=== PATIENT | female | born 1975 ===

== ENCOUNTER → 2018-01-16 | Outpatient (CLI) | payer OTHER ==
--- NOTE | 2018-01-16 13:47 | Diagnostic Imaging Report ---
INDICATION: Routine screening. No prior mammograms are available for comparison. This is a baseline study. 2-D and 3-D bilateral screening mammography was performed with CAD. The current study was also evaluated with a Computer Aided Detection (CAD) system. FINDINGS: Scattered fibronodular densities are identified bilaterally. No mass or malignant-appearing microcalcifications are seen. The axillae are unremarkable. IMPRESSION: No mammographic features suspicious for malignancy are identified. ACR BI-RADS Category 1: Negative. Result letter will be mailed to the patient. Note: At least 10% of breast cancer is not imaged by mammography. Dictated by: Dictated on workstation # [id number]
== END ==
LOC: RAD 10:39
PROVIDERS: ATTEND Nurse Practitioner Family
DX: Z12.31 Encounter for screening mammogram for malignant neoplasm of breast (principal)
CPT/HCPCS: 77067

== ENCOUNTER → 2020-05-10 | Outpatient (REF) ==
--- NOTE | 2020-05-10 14:30 | Diagnostic Imaging Report ---
INDICATION: Lifting injury, pain. FINDINGS: Two views of the right humerus show no fracture, dislocation, or opaque foreign body. No abnormal periosteal reaction. IMPRESSION: Unremarkable 2 view right humerus series. Dictated by: Dictated on workstation # [id number]
== END ==
LOC: OCC 11:33 → MERGE 11:33
PROVIDERS: ATTEND Nurse Practitioner Family
DX: S49.91XA Unspecified injury of right shoulder and upper arm, initial encounter (principal); X58.XXXA Exposure to other specified factors, initial encounter
CPT/HCPCS: 73060

== ENCOUNTER 2020-12-21 16:25 | Emergency (ER) | payer OTHER ==
[~2020-12-21] VITALS: Ht 155 cm; Wt 81.6 kg
--- NOTE | 2020-12-21 16:54 | ED GU-Female ---
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 Patient states that she was seen at [facility] and told she was anemic started on iron pills but she states she ran out about a week ago. Patient states that she is a little lightheaded and dizzy with position change. She complains of mild abdominal cramping but none currently. She is a G 4 P2. She states her last Pap smear and female exam was approximately 3 years ago. She has an appointment with Dr. Ashraf scheduled for January. She denies any associated symptoms of vaginal itching, dysuria, urgency, frequency. She has not had any diarrheal illnesses. No fevers or chills. No other complaints of illness or injury. She states the blood today is watery and a little bit less than what she has been having. She has been taking no other medications for the bleeding other than the iron tablets. Language line was used for interpretation as was her grown son who is at the bedside. All other review of systems reviewed and negative except as stated above. Timing/Duration: constant Severity/Quality: cramping Activities at Onset: none Prior Genitourinary Problems: none Associated Symptoms: abdominal pain (Mild abdominal cramping occasionally) Allergies and Home Medications Allergies Coded Allergies: No Known Drug Allergies (Unverified , 12/21/20) Patient Home Medication List Home Medication List Reviewed: Yes Review of Systems Review of Systems Constitutional: see HPI, malaise, weakness, other (Dizziness) Respiratory: no symptoms reported Cardiovascular: no symptoms reported Gastrointestinal: abdominal pain Genitourinary: other (Vaginal bleeding) : No Musculoskeletal: no symptoms reported Skin: no symptoms reported Hematologic/Lymphatic: Anemia All Other Systemes Reviewed Negative Unless Noted: Yes Past Vnhlyyl-Vbbaom-Ifdekd Hx Patient Social History Alcohol Use: Denies Use 2nd Hand Smoke Exposure: No Recent Hopitalizations: No Past Medical History Surgeries: Yes (c sections) Abdominal Respiratory: No Cardiac: No Neurological: No Genitourinary: No Gastrointestinal: No Musculoskeletal: No Endocrine: No HEENT: No Cancer: No Psychosocial: No Integumentary: No Blood Disorders: No Physical Exam Vital Signs Vital Signs - First Documented 12/21/20 16:30 Temp 36.1 Pulse 104 Resp 18 B/P (MAP) 132/82 (99) Pulse Ox 98 O2 Delivery Room Air Capillary Refill : Height, Weight, BMI Height: '" Weight: lbs. oz. kg; BMI Method: General Appearance: WD/WN, no apparent distress HEENT: pale conjunctivae (R), pale conjunctivae (L) Neck: full range of motion Cardiovascular: regular rate, rhythm Respiratory: lungs clear, normal breath sounds, no respiratory distress Gastrointestinal: non tender, soft Pelvic: normal external exam, no cerv. motion tender, no masses, vaginal bleeding, other (os closed; moderate amount of blood and clot in vaginal vault; some clot removed from cervix) Neurologic/Psychiatric: alert, normal mood/affect, oriented x 3 Skin: normal color, warm/dry Progress/Results/Core Measures Suspected Sepsis SIRS Temperature: Pulse: Respiratory Rate: Laboratory Tests 12/21/20 16:35: White Blood Count 6.6 Blood Pressure / Mean: Laboratory Tests 12/21/20 16:35: Creatinine 0.76, Platelet Count 330 Results/Orders Lab Results Laboratory Tests Test 12/21/20 16:35 Range/Units White Blood Count 6.6 4.3-11.0 10^3/uL Red Blood Count 4.07 3.80-5.11 10^6/uL Hemoglobin 9.8 L 11.5-16.0 g/dL Hematocrit 31 L 35-52 % Mean Corpuscular Volume 75 L 80-99 fL Mean Corpuscular Hemoglobin 24 L 25-34 pg Mean Corpuscular Hemoglobin Concent 32 32-36 g/dL Red Cell Distribution Width 17.1 H 10.0-14.5 % Platelet Count 330 130-400 10^3/uL Mean Platelet Volume 10.4 9.0-12.2 fL Immature Granulocyte % (Auto) 1 % Neutrophils (%) (Auto) 61 42-75 % Lymphocytes (%) (Auto) 25 12-44 % Monocytes (%) (Auto) 9 0-12 % Eosinophils (%) (Auto) 3 0-10 % Basophils (%) (Auto) 1 0-10 % Neutrophils # (Auto) 4.0 1.8-7.8 10^3/uL Lymphocytes # (Auto) 1.7 1.0-4.0 10^3/uL Monocytes # (Auto) 0.6 0.0-1.0 10^3/uL Eosinophils # (Auto) 0.2 0.0-0.3 10^3/uL Basophils # (Auto) 0.1 0.0-0.1 10^3/uL Immature Granulocyte # (Auto) 0.1 0.0-0.1 10^3/uL Sodium Level 141 135-145 MMOL/L Potassium Level 4.0 3.6-5.0 MMOL/L Chloride Level 108 H 98-107 MMOL/L Carbon Dioxide Level 22 21-32 MMOL/L Anion Gap 11 5-14 MMOL/L Blood Urea Nitrogen 8 7-18 MG/DL Creatinine 0.76 0.60-1.30 MG/DL Estimat Glomerular Filtration Rate > 60 BUN/Creatinine Ratio 11 Glucose Level 93 70-105 MG/DL Calcium Level 8.8 8.5-10.1 MG/DL Serum Test, Qualitative NEGATIVE NEGATIVE My Orders Orders - RADHA HENRY MD Cbc With Automated Diff (12/21/20 16:54) Ed Iv/Invasive Line Start (12/21/20 16:54) Basic Metabolic Panel (12/21/20 16:54) Hcg,Qualitative Serum (12/21/20 16:54) Vital Signs/I&O 12/21/20 16:30 Temp 36.1 Pulse 104 Resp 18 B/P (MAP) 132/82 (99) Pulse Ox 98 O2 Delivery Room Air Capillary Refill : Departure Impression Primary Impression: Anemia Qualified Codes: D64.9 - Anemia, unspecified Additional Impression: Abnormal vaginal bleeding Disposition: 01 HOME, SELF-CARE Condition: Stable Departure-Patient Inst. Decision time for Depature: 17:33 Referrals: [facility] (PCP/Family) Primary Care Physician BRIANA ASHRAF DO Patient Instructions: Heavy Periods (DC) Add. Discharge Instructions: Start taking over the counter Alleve, 2 pills twice a day with food. This will help with discomfort as well as slow the amount of blood you are passing. Take over the counter "Vitron C Iron Supplement" once daily. Take this until you see Dr Ashraf. Return to the Emergency Room for any worsening bleeding, pain, fevers or other emergent concerning symptoms. RADHA HENRY MD Dec 21, 2020 16:54
[2020-12-21 17:04] LABS: BASOPHILS # (AUTO) 0.1 10^3/uL (0.0-0.1); BASOPHILS % (AUTO) 1 % (0-10); EOSINOPHILS # (AUTO) 0.2 10^3/uL (0.0-0.3); EOSINOPHILS % (AUTO) 3 % (0-10); HEMATOCRIT 31 % (35-52); HEMOGLOBIN 9.8 g/dL (11.5-16.0); LYMPHOCYTES # (AUTO) 1.7 10^3/uL (1.0-4.0); LYMPHOCYTES % (AUTO) 25 % (12-44); MEAN CORPUSCULAR HEMOGLOBIN 24 pg (25-34); MEAN CORPUSCULAR HGB CONC 32 g/dL (32-36); MEAN CORPUSCULAR VOLUME 75 fL (80-99); MEAN PLATELET VOLUME 10.4 fL (9.0-12.2); MONOCYTES # (AUTO) 0.6 10^3/uL (0.0-1.0); MONOCYTES % (AUTO) 9 % (0-12); NEUTROPHILS % (AUTO) 61 % (42-75); PLATELET COUNT 330 10^3/uL (130-400); WHITE BLOOD COUNT 6.6 10^3/uL (4.3-11.0)
[2020-12-21 17:10] LABS: BUN/CREATININE RATIO 11; CALCIUM 8.8 MG/DL (8.5-10.1); CARBON DIOXIDE 22 MMOL/L (21-32); CHLORIDE 108 MMOL/L (98-107); CREATININE SERUM 0.76 MG/DL (0.60-1.30); GFR ESTIMATED > 60; GLUCOSE 93 MG/DL (70-105); SODIUM 141 MMOL/L (135-145)
[2020-12-21 17:45] VITALS: BP 127/70
== END 2020-12-21 17:45 | disposition home or self-care (01) ==
LOC: EDUNIT# 16:25 → ER 16:27
DX: D64.9 Anemia, unspecified (principal); N93.9 Abnormal uterine and vaginal bleeding, unspecified
CPT/HCPCS: 36415; 80048; 84703; 85025

== ENCOUNTER 2021-02-07 06:25 | Outpatient (CLI) | payer OTHER ==
[~2021-02-07] VITALS: Ht 154.9 cm; Wt 90.9 kg
[2021-02-07] MEDS ORDERED: PRD20T PO (14:16)
[2021-02-07] MEDS ORDERED: IRON (14:16)
[2021-02-07] MEDS ORDERED: BENZ100C18 PO (14:16)
== END 2021-02-07 14:30 | disposition home or self-care (01) ==
LOC: PREOP 06:25
PROVIDERS: ATTEND Obstetrics & Gynecology
DX: Z01.818 Encounter for other preprocedural examination (principal)

== ENCOUNTER 2021-02-12 08:11 | Day surgery (SDC) | payer OTHER ==
[2021-02-12] VITALS (11 sets, daily range): BP systolic 99–121; BP diastolic 62–73
[~2021-02-12] VITALS: Ht 154.9 cm; Wt 90.9 kg
[~2021-02-12 08:11] MED LIST: BENZ100C18 PO; IRON; PRD20T PO
[2021-02-12] MEDS ORDERED: LACTATED RINGERS 1,000 ML IV PRN (08:30)
[2021-02-12] MEDS ORDERED: BUPIVACAINE 0.5% 30 ML (SENSORCAINE) VIAL ONE (08:42)
[2021-02-12] MEDS ORDERED: BUPIVACAINE 0.25% 30 ML (SENSORCAINE) VIAL ONE (08:47)
[2021-02-12] MEDS ORDERED: LIDOCAINE PF 2% 5 ML (XYLOCAINE) VIAL ONE (08:50)
[2021-02-12] MEDS ORDERED: proPOfol 200 MG/20 ML (DIPRIVAN) VIAL IV ONE (08:50)
[2021-02-12] MEDS ORDERED: ONDANSETRON 4 MG/2 ML (SDV) Z0FRAN ONE (08:50)
[2021-02-12] MEDS ORDERED: MIDAZOLAM 2 MG/2 ML (VERSED) VIAL ONE (08:51)
[2021-02-12] MEDS ORDERED: fentaNYL INJ 100 MCG/2 ML AMP ONE (08:51)
[2021-02-12 09:13] LABS: BASOPHILS # (AUTO) 0.1 10^3/uL (0.0-0.1); BASOPHILS % (AUTO) 1 % (0-10); EOSINOPHILS # (AUTO) 0.3 10^3/uL (0.0-0.3); EOSINOPHILS % (AUTO) 5 % (0-10); HEMATOCRIT 40 % (35-52); HEMOGLOBIN 12.1 g/dL (11.5-16.0); LYMPHOCYTES # (AUTO) 1.5 10^3/uL (1.0-4.0); LYMPHOCYTES % (AUTO) 27 % (12-44); MEAN CORPUSCULAR HEMOGLOBIN 25 pg (25-34); MEAN CORPUSCULAR HGB CONC 31 g/dL (32-36); MEAN CORPUSCULAR VOLUME 81 fL (80-99); MEAN PLATELET VOLUME 10.2 fL (9.0-12.2); MONOCYTES # (AUTO) 0.5 10^3/uL (0.0-1.0); MONOCYTES % (AUTO) 9 % (0-12); NEUTROPHILS # (AUTO) 3.3 10^3/uL (1.8-7.8); NEUTROPHILS % (AUTO) 58 % (42-75); PLATELET COUNT 296 10^3/uL (130-400); WHITE BLOOD COUNT 5.6 10^3/uL (4.3-11.0)
--- NOTE | 2021-02-12 09:37 | Progress Note-Pre Operative ---
Pre-Operative Progress Note H&P Reviewed The H&P was reviewed, patient examined and no changes noted. Date Seen by Provider: Feb 12, 2021 Time Seen by Provider: 09:35 Date H&P Reviewed: Feb 12, 2021 Time H&P Reviewed: 09:00 Pre-Operative Diagnosis: BRIANA OBRIEN DO Feb 12, 2021 09:37
--- NOTE | 2021-02-12 09:39 | Discharge Inst-Women's Service ---
Discharge Inst-Women's Serv Depart Medication/Instructions New, Converted or Re-Newed RX: RX on Chart Problems Reviewed?: Yes Consults/Follow Up Additional Follow Up: Yes Orders/Referrals Dr. Ashraf in 7-10 days Activity Activity: Activity as Tolerated Driving Instructions: No Driving for 1 Week NO SMOKING: NO SMOKING Nothing Inside Vagina: No Douching, No Banquete, No Tampons Diet Discharge Diet: No Restrictions Symptoms to Report to : Bleeding Excessive, Pain Increased, Fever Over 101 Degrees F, Vaginal Bleeding Increase, Questions/Concerns For Any Problems or Questions: Contact Your Physician BRIANA ASHRAF DO Feb 12, 2021 09:39
[2021-02-12] MEDS ORDERED: ACHD5005 PO (09:40)
[2021-02-12] MEDS ORDERED: IBUP-1773 PO (09:40)
[2021-02-12] MEDS ORDERED: ONDANSETRON 4 MG/2 ML (SDV) Z0FRAN IVP PRN ×2 (09:45→10:30)
[2021-02-12] MEDS ORDERED: D5 LR IV SOLUTION 1,000 ML IV SCH (09:45)
[2021-02-12] MEDS ORDERED: KETOROLAC 30 MG/ML VIAL IVP ONE (09:45)
[2021-02-12] MEDS ORDERED: HYDROcodone/APAP 5 MG/325 MG (LORTAB) TAB PO PRN (09:45)
[2021-02-12] MEDS ORDERED: morphine INJ 10 MG/ML 1ML (SYR OR VIAL) IVP ONE (10:30)
--- NOTE | 2021-02-12 10:33 | Anesthesia-General Post-Op ---
General Patient Condition Mental Status/LOC: Same as Preop Cardiovascular: Satisfactory Nausea/Vomiting: Absent Respiratory: Satisfactory Pain: Controlled Complications: Absent Post Op Complications Complications None Follow Up Care/Instructions Patient Instructions None needed. Anesthesia/Patient Condition Patient Condition Patient is doing well, no complaints, stable vital signs, no apparent adverse anesthesia problems. ANYA DONNELLY DO Feb 12, 2021 10:33
--- NOTE | 2021-02-12 19:44 | OPERATIVE REPORT ---
DATE OF SERVICE: 02/12/2021 PREOPERATIVE DIAGNOSES: 1. A 46-year-old female with abnormal uterine bleeding. 2. Chronic blood loss anemia. POSTOPERATIVE DIAGNOSES: 1. A 46-year-old female with abnormal uterine bleeding. 2. Chronic blood loss anemia. PROCEDURE: D and C. SURGEON: Briana Ashraf DO ANESTHESIA: LMA general. ESTIMATED BLOOD LOSS: Minimal. URINE OUTPUT: 20 mL drained at the start of the procedure. FLUIDS: 800 mL lactated Ringer's solution. FINDINGS: Grossly normal appearing external female genitalia: Normal appearing cervix and vaginal mucosa. A moderate amount of endometrial tissue collected on curettings. SPECIMEN SENT: Endometrial curettings. INDICATIONS FOR PROCEDURE: This 46-year-old female patient who is consulted to my office for abnormal uterine bleeding and chronic blood loss anemia secondary to the bleeding. I discussed with the patient need for endometrial sampling due to change in bleeding status greater than age of 40 and a BMI greater than 35, risk of the procedure were discussed with the patient in detail including risk of bleeding, infection and damaging in the uterus itself, recovery timeframe, risk from anesthesia and even . Everything was discussed with the patient in detail, consent was obtained in the preoperative area, the patient was taken to the operating room. OPERATIVE REPORT IN DETAIL: Once in the operating room, anesthesia was found to be adequate, placed in dorsal lithotomy position, prepped and draped in normal sterile fashion. Timeout was performed. Straight catheterization was performed. A weighted speculum inserted to the patient's vagina. Right angle retractor was used to visualize the cervix, which was grasped at 12 o'clock position using a long Allis clamp. I then performed paracervical block at 3 and 9 o'clock positions on the cervix. Care was taken to aspirate before injecting. I injected 5 mL of 0.25% Marcaine into each site for paracervical block. I then gently sound the uterine cavity, depth was found to be 8 cm, I then gently dilated cervix using Hegar dilators to maximum dilatation approximately 1 cm. I then performed a gentle curettage of all endometrial surfaces and collected a moderate amount of endometrial tissue. In doing so, after which there was no active bleeding noted from any of my dissection planes. I removed all the instruments from the patient's vagina. The patient tolerated the procedure well and sent to recovery area in stable condition. Lap and sponge counts were correct at the end of the procedure. Instrument counts correct as well. Job ID: [id number] DocumentID: [id number] Dictated Date: 02/12/2021 12:46:13 Yarn Inspector Date: 02/12/2021 19:43:58 Dictated By: BRIANA ASHRAF DO
== END 2021-02-12 12:15 ==
LOC: SDC 08:11
PROVIDERS: ATTEND Obstetrics & Gynecology
DX: N93.9 Abnormal uterine and vaginal bleeding, unspecified (principal); D50.0 Iron deficiency anemia secondary to blood loss (chronic); R93.89 Abnormal findings on diagnostic imaging of other specified body structures; Z79.899 Other long term (current) drug therapy; Z82.49 Family history of ischemic heart disease and other diseases of the circulatory system
CPT/HCPCS: 36415; 84703; 85025; 86850; 86900; 86901; 87081; 88305

== ENCOUNTER 2021-11-08 17:19 | Emergency (ER) | payer OTHER ==
[~2021-11-08 17:19] MED LIST changes: +ACHD5005 PO; +IBUP-1773 PO
--- NOTE | 2021-11-08 18:29 | ED GU-Female ---
General Chief Complaint: - Reproductive Stated Complaint: IUD CAUSING PAIN Source: patient Exam Limitations: no limitations History of Present Illness Date Seen by Provider: Nov 08, 2021 Time Seen by Provider: 18:07 Initial Comments Patient to the ER by private conveyance with a significant other chief complaint that she is having some cramping abdominal pain and discomfort and feels like she can feel her IUD coming out of her cervix. She had her last period a week ago. She still having a little bit of spotting which she says is normal. She is not having any discharge. She denies dysuria. She says she feels a burning sensation. No fevers or chills. No nausea or vomiting. The IUD was placed by Dr. Johnson. She has an appointment November 21 to have it addressed. Allergies and Home Medications Allergies Coded Allergies: No Known Drug Allergies (Unverified , 02/07/21) Patient Home Medication List Home Medication List Reviewed: Yes Benzonatate (Tessalon Perles) 100 Mg Capsule, 100 MG PO, (Reported) Entered as Reported by: JUANA HOBBS on 02/07/211415 Hydrocodone Bit/Acetaminophen (HYDROcodone/APAP 5 MG/325 MG TAB) 1 Tab Tab, 1 EA PO Q4H PRN for PAIN-MODERATE (5-7) Prescribed by: BRIANA ASHRAF on 02/12/21 0940 Ibuprofen (Ibuprofen) 600 Mg Tablet, 600 MG PO Q6H Prescribed by: BRIANA ASHRAF on 02/12/21 0940 Prednisone (Prednisone) 20 Mg Tab, 0 PO UD, (Reported) Entered as Reported by: JUANA HOBBS on 02/07/211415 [Iron] , (Reported) Entered as Reported by: JUANA HOBBS on 02/07/211415 Review of Systems Review of Systems Constitutional: No chills, No fever EENTM: No eye pain, No hoarseness, No mouth pain Respiratory: No cough, No hemoptysis Gastrointestinal: No abdominal pain, No constipation, No diarrhea, No nausea Genitourinary: burning; denies discharge, denies dysuria Musculoskeletal: No back pain, No joint pain All Other Systemes Reviewed Negative Unless Noted: Yes Past Aqacolw-Dhugka-Pzfond Hx Patient Social History Tobacco Use?: No Use of E-Cig and/or Vaping dev: No Seasonal Allergies Seasonal Allergies: Yes Past Medical History Surgeries: Yes (c sections) Abdominal Respiratory: No Cardiac: No Neurological: No Genitourinary: No Gastrointestinal: No Musculoskeletal: No Endocrine: No HEENT: No Cancer: No Psychosocial: No Integumentary: No Blood Disorders: No Physical Exam Vital Signs Capillary Refill : Height, Weight, BMI Height: '" Weight: lbs. oz. kg; 37.88 BMI Method: General Appearance: WD/WN, no apparent distress HEENT: PERRL/EOMI, normal ENT inspection Neck: full range of motion, supple Cardiovascular: normal peripheral pulses, regular rate, rhythm Respiratory: no respiratory distress, no accessory muscle use Gastrointestinal: non tender, soft Neurologic/Psychiatric: alert, normal mood/affect, oriented x 3 Progress/Results/Core Measures Suspected Sepsis SIRS Temperature: Pulse: Respiratory Rate: Blood Pressure / Mean: Results/Orders My Orders Orders - ESTIVEN MAYORGA Naproxen Tablet (Naprosyn Tablet) (11/08/21 18:30) Vital Signs/I&O Capillary Refill : Progress Note : Time: 18:27 Progress Note Patient has stable vital signs and a soft abdomen. She does not have any emergency likely. We have explained that we do not take out IUDs in the ER and it may be something like her strings that are irritating her and that she feels and they could be trimmed by the doctor who put them in and that she should keep her appointment with them. We have agreed to address her pain with a shot of Toradol but she does not like shots so we will switch that to naproxen. We have offered to do a urine and wet prep which she has declined. We have given her return precautions and encouraged to follow-up with her doctor. Departure Impression Primary Impression: IUD complication Qualified Codes: T83.9XXA - Unspecified complication of genitourinary prosthetic device, implant and graft, initial encounter Disposition: 01 HOME, SELF-CARE Condition: Stable Departure-Patient Inst. Decision time for Depature: 18:28 Referrals: [facility] [place]) Primary Care Physician Patient Instructions: Intrauterine Devices (IUD), LOCAL PHYSICIAN LIST Add. Discharge Instructions: Please follow-up with your certified hyperbaric technologist to have the IUD inspected. Sometimes there are things that can be done that will alleviate your symptoms without removing the IUD. Immediately return to the nearest ER if you have a painful rigid stomach that is constant, or you develop fever, nausea or other worrisome symptoms of systemic infection. Naproxen 2 tablets twice a day for pain and cramping. Tylenol 1000 mg every 8 hours as needed for pain. All discharge instructions reviewed with patient and/or family. Voiced understanding. Copy Copies To 1: TAMARA JOHNSON MD, TITUS J Nov 08, 2021 18:29
[2021-11-08] MEDS ORDERED: NAPROXEN 250 MG (NAPROSYN) TABLET PO ONE (18:30)
[2021-11-08 18:51] VITALS: BP 114/66
== END 2021-11-08 18:52 | disposition home or self-care (01) ==
LOC: EDUNIT# 17:19 → ER 17:25
DX: T83.84XA Pain due to genitourinary prosthetic devices, implants and grafts, initial encounter (principal)
CPT/HCPCS: 99283